=== PATIENT | female | born 1985 | race Caucasian/White ===

== ENCOUNTER 2018-01-11 10:55 | Emergency (ER) | payer OTHER ==
--- NOTE | 2018-01-11 13:00 | XRAY Report ---
EXAM: RIGHT WRIST RADIOGRAPHY EXAM DATE: 01/11/2018 12:29 PM. CLINICAL HISTORY: Wrist injury. Redness. Swelling and pain. COMPARISON: None. TECHNIQUE: 4 views. FINDINGS: Bones: Normal. No fractures or bone lesions. Joints: Normal. No subluxations. Soft Tissues: Soft tissue edema. No radiopaque foreign bodies. IMPRESSION: 1. No acute osseous abnormalities. [facility] Referring Provider Line: [phone] SITE ID: [id number]
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
[2018-01-11] MEDS ORDERED: HYDROcod/ACETAM 5/325 MG TABLET PO STA (13:53)
--- NOTE | 2018-01-11 13:55 | XRAY Report ---
EXAM: RIGHT FOREARM RADIOGRAPHY EXAM DATE: 01/11/2018 01:29 PM. CLINICAL HISTORY: Arm twisted elbow wrist and forearm pain. COMPARISON: None. TECHNIQUE: 2 views. FINDINGS: Bones: Normal. No fractures or bone lesions. Joints: Normal. No effusions or subluxations in the visualized wrist or elbow joints. Soft Tissues: Mild dorsal soft tissue swelling. IMPRESSION: Mild dorsal soft tissue swelling without evidence of fracture. [facility] Referring Provider Line: [phone] SITE ID: [id number]
[2018-01-11 14:34] VITALS: BP 134/77
== END 2018-01-11 14:36 | disposition home or self-care (01) ==
LOC: ED 10:55
DX: S63.501A Unspecified sprain of right wrist, initial encounter (principal); S53.401A Unspecified sprain of right elbow, initial encounter; W18.30XA Fall on same level, unspecified, initial encounter; X50.9XXA Other and unspecified overexertion or strenuous movements or postures, initial encounter; Y93.K1 Activity, walking an animal; Y92.410 Unspecified street and highway as the place of occurrence of the external cause; F17.200 Nicotine dependence, unspecified, uncomplicated
CPT/HCPCS: 1040M; 29125; 73090; 73110; 99283; A9270

== ENCOUNTER 2018-11-25 11:59 | Outpatient (CLI) | payer OTHER ==
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
== END 2018-11-25 12:00 | disposition home or self-care (01) ==
LOC: DI 11:59
PROVIDERS: ATTEND Internal Medicine
DX: R07.82 Intercostal pain (principal); M54.2 Cervicalgia; S13.4XXA Sprain of ligaments of cervical spine, initial encounter; M25.78 Osteophyte, vertebrae
CPT/HCPCS: 72125

== ENCOUNTER 2021-06-25 07:45 | Outpatient (CLI) | payer OTHER | END 2021-06-25 23:59 | LOC: LAB.N 07:45 | PROVIDERS: ATTEND Physician Assistant Medical | DX: R05.9 Cough, unspecified (principal); Z20.822 Contact with and (suspected) exposure to COVID-19 ==

== ENCOUNTER 2022-01-10 08:00 | Outpatient (CLI) | payer OTHER ==
[2022-01-10 18:07] LABS: BILIRUBIN,URINE NEGATIVE (NEGATIVE); GLUCOSE, URINE (UA) NEGATIVE (NEGATIVE); KETONES,URINE (UA) NEGATIVE (NEGATIVE); LEUKOCYTE ESTERASE, URINE MODERATE (NEGATIVE); NITRITE,URINE NEGATIVE (NEGATIVE); OCCULT BLOOD,URINE TRACE-INTA (NEGATIVE); PH,URINE 7.5 PH (5.0-7.5); PROTEIN,URINE NEGATIVE (NEGATIVE); UROBILINOGEN,URINE 0.2 (NORMAL) E.U./dL (NORMAL)
[2022-01-10 18:28] LABS: CLARITY,URINE HAZY (CLEAR)
[2022-01-10 18:59] LABS: AMORPHOUS SEDIMENT,UR Rare /LPF; BACTERIA,URINE Many /HPF (None Seen); RBC,URINE 0-5 /HPF (0-5); SQUAMOUS EPITHELIAL CELL,UR MANY Squamous (<= Few)
== END 2022-01-10 23:59 | disposition home or self-care (01) ==
LOC: LAB.R 08:00
PROVIDERS: ATTEND Internal Medicine
DX: R39.9 Unspecified symptoms and signs involving the genitourinary system (principal)
CPT/HCPCS: 81001; 81003; 87086

== ENCOUNTER 2022-07-25 08:00 | Outpatient (CLI) | payer OTHER ==
[2022-07-25 16:09] LABS: BILIRUBIN,URINE NEGATIVE (NEGATIVE); GLUCOSE, URINE (UA) NEGATIVE (NEGATIVE); KETONES,URINE (UA) NEGATIVE (NEGATIVE); LEUKOCYTE ESTERASE, URINE NEGATIVE (NEGATIVE); NITRITE,URINE NEGATIVE (NEGATIVE); OCCULT BLOOD,URINE SMALL (NEGATIVE); PH,URINE 6.5 PH (5.0-7.5); PROTEIN,URINE NEGATIVE (NEGATIVE); UROBILINOGEN,URINE 0.2 (NORMAL) E.U./dL (NORMAL)
[2022-07-25 16:19] LABS: CLARITY,URINE CLEAR (CLEAR); RBC,URINE 0-5 /HPF (0-5); SQUAMOUS EPITHELIAL CELL,UR MANY Squamous (<= Few); WBC,URINE 0-3 /HPF (0-5)
[2022-07-25 16:20] LABS: BACTERIA,URINE Few /HPF (None Seen)
== END 2022-07-25 23:59 | disposition home or self-care (01) ==
LOC: LAB.R 08:00
PROVIDERS: ATTEND Internal Medicine
DX: R10.31 Right lower quadrant pain (principal); R10.33 Periumbilical pain
CPT/HCPCS: 81001; 87086

== ENCOUNTER 2022-07-25 12:10 | Outpatient (CLI) | payer OTHER ==
[2022-07-25 12:39] LABS: CREATININE 0.6 mg/dL (0.4-1.0)
== END 2022-07-25 12:11 | disposition home or self-care (01) ==
LOC: LAB 12:10
PROVIDERS: ATTEND Nurse Practitioner Family
DX: Z79.899 Other long term (current) drug therapy (principal)
CPT/HCPCS: 36415; 82565

== ENCOUNTER 2022-07-25 12:20 | Outpatient (CLI) | payer OTHER ==
--- NOTE | 2022-07-25 13:24 | CT Report ---
PROCEDURE: ABDOMEN/PELVIS WO INDICATIONS: RLQ PAIN TECHNIQUE: Noncontrast 5 mm thick sections acquired from the diaphragms to the symphysis. 5 mm coronal and sagi ttal reformats were then performed. For radiation dose reduction, the following was used: automated exposure control, adjustment of mA and/or kV according to patient size. COMPARISON: None. FINDINGS: Image quality: Excellent. ABDOMEN: Lung bases: Lung bases are clear. Heart size is normal. Solid organs: Liver and spleen are normal in size. Gallbladder is unremarkable Pancreas is normal in contours. No adrenal nodules. Kidneys are normal in size, without hydronephrosis or nephrolithia sis. Peritoneum and bowel: Unenhanced bowel loops demonstrate normal wall thickness and caliber. No free fluid or air. Nodes and vessels: No retroperitoneal or mesenteric adenopathy by size criteria. Aorta and inferior vena cava are normal in caliber. Miscellaneous: No ventral hernias. PELVIS: Genitourinary: Bladder wall thickness is normal. There is a complex mass appearing to arise from th e right adnexa measuring 15.8 x 12.1 x 15.6 cm. There are portions along the superior aspect best see n on series 6 image 23 that appear to have a more solid component measuring approximately 7.3 x 4.0 c m. Miscellaneous: No inguinal hernias or adenopathy. Bones: No suspicious bony lesions. No vertebral body compression fractures. IMPRESSION: Large pelvic mass appearing complex arising from the right adnexa. Finding is concerning for gynecolo gic malignancy. Further evaluation with PRODUCTION SUPPORT CONSULTANT consult and further imaging such as ultrasound or pelvic MR as indicated. Reviewed by: Apurva Vasquez MD on 07/25/2022 1:23 PM PST Approved by: Apurva Vasquez MD on 07/25/2022 1:23 PM PST Station ID: [id number]
== END 2022-07-25 12:21 | disposition home or self-care (01) ==
LOC: DI 12:20
PROVIDERS: ATTEND Internal Medicine
DX: R19.09 Other intra-abdominal and pelvic swelling, mass and lump (principal); Z79.899 Other long term (current) drug therapy; R10.31 Right lower quadrant pain; R10.33 Periumbilical pain
CPT/HCPCS: 36415; 81001; 82565; 87086

== ENCOUNTER 2022-08-07 20:15 | Outpatient (CLI) | payer OTHER ==
--- NOTE | 2022-08-09 09:25 | Ultrasound Report ---
PROCEDURE: Pelvic Complete INDICATIONS: PELVIC MASS TECHNIQUE: Real-time transabdominal scanning was performed of the pelvic organs, with image documentation. COMPARISON: CT abdomen and pelvis without, 07/25/2022. FINDINGS: Uterus: Uterus is anteverted measuring 9.7 x 4.3 x 5.1 cm. Endometrium measures 9.3 mm in combined thickness. There is an IUD in within the endometrium. Ovaries: Right ovary is not well seen. There is a large complex cystic mass with internal septa in th e right adnexa measuring 14.8 x 12.8 x 15.2 cm. Left ovary is normal measuring 2.2 x 2.1 x 4.1 cm with an estimated volume of 9.84 mL. Other: No free pelvic fluid. IMPRESSION: 1. A large complex cystic mass in the right adnexa measuring 14.8 12.8 x 50.2 cm. Differential diagno ses are benign versus malignant cystic ovarian neoplasm. Recommend gynecological consultation. 2. Normal uterus with an IUD. 3. Normal left ovary. Reviewed by: Kiersten Bull MD on 08/09/2022 9:24 AM PST Approved by: Kiersten Bull MD on 08/09/2022 9:24 AM PST Station ID: [id number]
== END 2022-08-07 20:16 | disposition home or self-care (01) ==
LOC: DI 20:15
PROVIDERS: ATTEND Internal Medicine
DX: R19.00 Intra-abdominal and pelvic swelling, mass and lump, unspecified site (principal); Z97.5 Presence of (intrauterine) contraceptive device

== ENCOUNTER 2022-08-13 08:00 | Outpatient (CLI) | payer OTHER | END 2022-08-13 23:59 | disposition home or self-care (01) | LOC: LAB.R 08:00 | PROVIDERS: ATTEND Internal Medicine | DX: R10.9 Unspecified abdominal pain (principal); N64.4 Mastodynia; J45.901 Unspecified asthma with (acute) exacerbation; R53.83 Other fatigue; M54.2 Cervicalgia; R19.00 Intra-abdominal and pelvic swelling, mass and lump, unspecified site; R21 Rash and other nonspecific skin eruption; J45.909 Unspecified asthma, uncomplicated; K62.5 Hemorrhage of anus and rectum; R07.81 Pleurodynia; R10.31 Right lower quadrant pain; R10.33 Periumbilical pain; M32.9 Systemic lupus erythematosus, unspecified; Z79.899 Other long term (current) drug therapy | CPT/HCPCS: 81599; 82105; 82378; 83520; 83615; 86304; 86336 ==

== ENCOUNTER 2023-09-29 08:00 | Outpatient (CLI) | payer OTHER ==
[2023-09-29 22:38] LABS: BACTERIAL VAGINOSIS DNA NEGATIVE (NEGATIVE); CANDIDA GLABRATA DNA NEGATIVE (NEGATIVE); CANDIDA GROUP DNA POSITIVE (NEGATIVE); CANDIDA KRUSEI DNA NEGATIVE (NEGATIVE); TRICHOMONAS VAGINALIS DNA NEGATIVE (NEGATIVE)
== END 2023-09-29 23:59 | disposition home or self-care (01) ==
LOC: LAB.N 08:00
DX: L29.2 Pruritus vulvae (principal); R30.0 Dysuria
CPT/HCPCS: 81514; 87086

== ENCOUNTER 2023-10-29 08:14 | Outpatient (CLI) | payer OTHER ==
--- NOTE | 2023-10-30 09:41 | Mammography Report ---
BILATERAL DIGITAL DIAGNOSTIC MAMMOGRAM 3D/2D WITH SPOT COMPRESSION: 10/29/2023 CLINICAL: Palpable left breast lump. Baseline exam. No prior exams were available for comparison. Both breasts are heterogeneously dense, which may obscure small masses (category c / 51-75% glandular tissue). There is a 1.6 cm mass in the left breast at 3 o'clock middle depth. This is seen in additional view s and correlates as palpable. There also is a focal asymmetry in the left breast at 11 o'clock posterior depth. This correlates as an incidental finding. Additionally, there is a focal asymmetry in the left breast at 11 o'clock posterior depth. This nydia elates as an incidental finding. No other significant masses, calcifications, or other findings are seen in either breast. IMPRESSION: INCOMPLETE: NEEDS ADDITIONAL IMAGING EVALUATION The 1.6 cm mass in the left breast at 3 o'clock middle depth resembles a cyst or a fibroadenoma and i s indeterminate. The focal asymmetry in the left breast at 11 o'clock posterior depth is indeterminate. The focal asymmetry in the left breast at 11 o'clock posterior depth is indeterminate. A targeted ultrasound of the left breast is recommended and will be performed immediately following t his exam. Based on the Tyrer Cuzick model (a risk assessment model) the patient's lifetime risk is 10.2% and he r 10 year risk is 1.0%. According to the ACR, ACS, and NCCN guidelines, an annual breast MRI exam angelina ng with mammogram is recommended if the patient's lifetime risk is 20% or greater. This exam was interpreted at Station ID: [id number]. NOTE: For mammograms, a report in lay terms will be sent to the patient. Approximately 15% of breast malignancies will not be visualized mammographically. In the management of a palpable breast mass, a negative mammogram must not discourage biopsy of a clinically suspicious lesion. Electronically Signed By: Nessa Wong M.D. lk/:10/29/2023 10:50:24 ACR BI-RADS Category 0: Incomplete 3340F PARENCHYMAL PATTERN: (D) - The breast(s) demonstrate(s) heterogeneously dense fibroglandular parenchy ma. BI-RADS CATEGORY: (0) - 0 RECOMMENDATION: (ADDMAM) - Recommend additional mammographic views. [id number] Immediate follow-up LATERALITY: (B)
--- NOTE | 2023-10-30 09:42 | Ultrasound Report ---
LIMITED ULTRASOUND OF LEFT BREAST: 10/29/2023 Comparison is made to exam dated: 10/29/2023 mammogram - [facility]. Color flow ultrasound of the left breast 3 o'clock and 10-11 o'clock regions was performed on the ar eas of interest. Zheng scale images of the real-time examination were reviewed. There is a 1.3 cm x 1.1 cm x 1.7 cm oval mass in the left breast at 3 o'clock anterior depth. This o magdy mass is hypoechoic with a well-defined boundary, internal echoes, and posterior acoustic enhancem ent. This correlates as palpated and with mammography findings. There also is a 0.9 cm irregular mass in the left breast at 11 o'clock posterior depth. This irregul ar mass is hypoechoic with a well-defined boundary, internal echoes, and posterior acoustic enhanceme nt. This correlates with mammography findings. Additionally, there is a 0.4 cm irregular mass in the left breast at 11 o'clock posterior depth. Thi s irregular mass is hypoechoic with a well-defined boundary, internal echoes, and posterior acoustic enhancement. This correlates with mammography findings. IMPRESSION: SUSPICIOUS OF MALIGNANCY The 1.3 cm x 1.1 cm x 1.7 cm oval mass in the left breast at 3 o'clock anterior depth likely represen ts a fibroadenoma and is at a low suspicion for malignancy. An ultrasound guided biopsy is recommend ed. The 0.9 cm irregular mass in the left breast at 11 o'clock posterior depth likely represents a fibroa denoma and is probably benign. The 0.4 cm irregular mass in the left breast at 11 o'clock posterior depth likely represents a fibroa denoma and is probably benign. This exam was interpreted at Station ID: [id number]. SUMMARY: This was discussed with the patient by the radiologist Dr. Bull at the time of the exam. Electronically Signed By: Nessa serrano/:10/29/2023 11:03:40 Ultrasound BI-RADS: 4a Low suspicion for malignancy BI-RADS CATEGORY: (4a) - Low Susp Biopsy follow-up [id number] Immediate follow-up LATERALITY: (B)
== END 2023-10-29 08:15 | disposition home or self-care (01) ==
LOC: DI 08:14
PROVIDERS: ATTEND Internal Medicine
DX: N63.21 Unspecified lump in the left breast, upper outer quadrant (principal); N63.25 Unspecified lump in the left breast, overlapping quadrants; R92.333 Mammographic heterogeneous density, bilateral breasts

== ENCOUNTER 2023-12-15 07:48 | Day surgery (SDC) | payer OTHER ==
[2023-12-15] MEDS ORDERED: ceFAZolin 2 GM VIAL ONE (07:58)
[2023-12-15] MEDS: ACETAMINOPHEN 500 MG TABLET PO ONE (08:20)
[2023-12-15] MEDS: LACTATED RINGERS 1,000 ML IV ONE (08:41)
[2023-12-15] MEDS ORDERED: MORPHINE 2 MG/ML CARPUJECT IVP PRN (08:48)
[2023-12-15] MEDS ORDERED: METOCLOPRAMIDE 10 MG/2 ML VIAL IVP PRN (08:48)
[2023-12-15] MEDS ORDERED: HYDROmorphone 0.5 MG/0.5 ML SYRINGE IVP PRN ×2 (08:48→10:32)
[2023-12-15] MEDS ORDERED: NALOXONE 0.4 MG/ML VIAL IVP PRN (08:48)
[2023-12-15] MEDS ORDERED: ONDANSETRON 4 MG/2 ML VIAL IVP PRN ×2 (08:48→10:32)
[2023-12-15] MEDS ORDERED: ePHEDrine 50 MG/ML VIAL IVP PRN (08:48)
[2023-12-15] MEDS ORDERED: fentaNYL 100 MCG/2 ML VIAL IVP PRN (08:48)
[2023-12-15] MEDS ORDERED: ATROPINE ABBOJECT 1 MG/10 ML SYRINGE IVP PRN (08:48)
--- NOTE | 2023-12-15 08:48 | ANESTHESIA ---
Pre-Anesthesia VS, & Labs - Diagnosis L breast mass - Procedure L breast excisional biopsy Vital Signs: Temp Pulse Resp BP Pulse Ox O2 Flow Rate 36.0 C L 66 18 144/96 H 97 12/15/23 08:18 12/15/23 08:18 12/15/23 08:18 12/15/23 08:18 12/15/23 08:18 Height: 5 ft Weight (kg): 78.2 kg Body Mass Index: 33.6 BMI Classification: Obese - NPO >8 hours - Is Patient ?: No - Lab Results Lab results reviewed: Yes Home Medications and Allergies Home Medications: Ambulatory Orders No Known Home Medications 11/20/23 No Known Home Medications 11/20/23 Allergies/Adverse Reactions: Allergies Allergy/AdvReac Type Severity Reaction Status Date / Time codeine Allergy Mild Itching Verified 01/11/18 11:22 Penicillins Allergy Mild Rash Verified 01/11/18 11:22 IV contrast Dye AdvReac Severe Anaphylaxis Uncoded 01/11/18 11:23 Anes History & Medical History - Anesthetic History Anesthesia Complications: reports: No previous complications Family history of Anesthesia Complications: Denies Family history of Malignant Hyperthermia: Denies - Medical History Cardiovascular: reports: None Pulmonary: reports: Asthma Gastrointestinal: reports: GERD, Diverticulitis Urinary: reports: None Musculoskeletal: reports: None Endocrine/Autoimmune: reports: Systemic lupus erythematosus Skin: reports: None Smoking Status: Current every day smoker - Surgical History Eyes Ears Nose Throat (EENT): reports: Other Gynecologic: reports: section, Hysterectomy Exam General: Alert, Oriented x3, Cooperative Dental: WNL Mouth Openin Fingerbreadth Neck Mobility: Normal Mallampati classification: II Thyromental Distance: 4-6 cm Respiratory: Lungs clear, Normal breath sounds, No respiratory distress Cardiovascular: Regular rate Neurological: Normal speech Mental/Cognitive Status: Alert/Oriented X3, Normal for patient Cognitive Status: Within normal limits Plan Anesthesia Type: General Consent for Procedure(s) Verified and Reviewed: Yes Code Status: Attempt Resuscitation ASA classification: 2-Mild systemic disease Is this case an emergency?: No
[2023-12-15] MEDS ORDERED: LACTATED RINGERS 1,000 ML IV SCH (09:00)
[2023-12-15] MEDS ORDERED: MIDAZOLAM 2 MG/2 ML VIAL ONE (09:19)
[2023-12-15] MEDS ORDERED: PROPOFOL 200 MG/20 ML VIAL IVP ONE (09:19)
[2023-12-15] MEDS ORDERED: LIDOCAINE-PF 2% 10 ML AMP SUBQ ONE (09:19)
[2023-12-15] MEDS ORDERED: fentaNYL 100 MCG/2 ML VIAL ONE ×2 (09:19→10:23)
[2023-12-15] MEDS ORDERED: LIDOCAINE 1%-EPI 1:100000 20 ML MDV ONE (09:24)
[2023-12-15] MEDS ORDERED: BUPIVACAINE 0.5% PF 10 ML VIAL ONE (09:24)
[2023-12-15] MEDS: LIDOCAINE 1%-EPI 1:100000 20 ML MDV SUBQ ONE ×2 (09:58)
[2023-12-15] MEDS: BUPIVACAINE 0.5% PF 10 ML VIAL SUBQ ONE ×2 (09:58)
[2023-12-15] MEDS ORDERED: ONDANSETRON 4 MG/2 ML VIAL ONE (10:05)
[2023-12-15] MEDS ORDERED: DEXAMETHASONE 4 MG/ML VIAL ONE (10:05)
[2023-12-15] MEDS ORDERED: ACETAMINOPHEN 500 MG TABLET PO PRN (10:32)
[2023-12-15] MEDS: DEXTROSE 5% 1,000 ML IV ONE (10:35)
--- NOTE | 2023-12-15 10:38 | OPERATIVE REPORT ---
Operative Report - General Procedure Date: 12/15/23 Planned Procedure: Excisional biopsy, left breast Pre-Op Diagnosis: left breast mass, suspect fibroadenoma Procedure Performed: Excisional biopsy, left breast Post Op Diagnosis: left breast mass, suspect fibroadenoma - Procedure Note Primary Surgeon: Dr. Ana Paula Rowland Anesthesia Provider: Vargas Mantilla CRNA Anesthesia Technique: General LMA Pathology: Left breast mass sent to pathology oriented short superior, long lateral, double anterior, measuring 3 x 2.5 x 1 cm Estimated Blood Loss (mL): 5 Indications: The patient has a left breast mass which she felt in September of this year. She feels like it has increased slightly in size since that time and causes her significant pain that radiates both to her nipple in her axilla. Imaging indicates a likely fibroadenoma in this location. Because the mass is causing the patient pain I recommended an excisional biopsy over core needle biopsy to provide definitive diagnosis and to treat her symptoms. We discussed the risks, benefits, and alternatives of the procedure including bleeding, infection, damage to surrounding structures, numbness in the area, and upstaging of the mass requiring additional surgery. The patient voiced understanding, her questions were answered, and she wished to proceed. A consent was signed by the patient prior to surgery. Of note, the patient had 2 additional smaller masses, also consistent with fibroadenomas, identified deeper in her breast on imaging, and we elected to follow these with imaging. Findings: 1. Left breast mass measuring 3 x 2.5 x 1 cm oriented short superior, long lateral, double anterior Complications: None - Other Other Information/Narrative: The patient was taken to the operating room and placed in the supine position. Preop antibiotics were given. ERAS medications were given. The patient was prepped and draped in the usual sterile fashion. A preop surgical timeout was performed. Attention was turned to the patient's left breast. An incision was made following the patient's skin folds, at the 3 o'clock position, overlying the mass. Skin flaps were raised superiorly and inferiorly to the incision. The dissection was carried down to the mass using electrocautery. At this point, the mass was grasped and freed from surrounding structures circumferentially. Excellent hemostasis was maintained. The lumpectomy specimen was removed and oriented with suture on the back table. The edges of the lumpectomy cavity were inspected and there were no palpable abnormalities. Hemostasis was confirmed. The lumpectomy cavity was irrigated with warm normal saline. Clips were placed in the superior, inferior, medial, lateral, anterior, and posterior margins of the lumpectomy cavity. The deep dermal tissues were closed with 3-0 Vicryl in an interrupted fashion. The skin was closed with 4-0 Monocryl in a running subcuticular fashion and a sterile dressing of skin glue was placed.. The patient tolerated the procedure well. There were no complications. She was transferred to the recovery room in stable condition.
[2023-12-15] MEDS ORDERED: oxyCODONE 5 MG TABLET ONE (11:14)
[2023-12-15] MEDS: oxyCODONE 5 MG TABLET PO PRN (11:15)
[2023-12-15 11:42] VITALS: BP 132/70; O2SAT 97
--- NOTE | 2023-12-15 12:28 | ANESTHESIA POST OP EVALUATION ---
Anesthesia Post Eval - Post Anesthesia Eval Vitals: Last Vital Signs Temp 36.2 C L 12/15/23 11:33 Pulse 70 12/15/23 11:33 Resp 68 H 12/15/23 11:33 BP 132/70 H 12/15/23 11:33 Pulse Ox 97 12/15/23 11:33 O2 Flow Rate CV Function Including HR & BP: Stable Pain Control: Satisfactory Nausea & Vomiting: Negative Mental Status: Baseline Respiratory Status: Airway Patent Hydration Status: Satisfactory Anesthesia Complications: None
== END 2023-12-15 07:49 | disposition home or self-care (01) ==
LOC: SDS 07:48
PROVIDERS: ATTEND Surgery
PROC: 0HBU0ZZ Excision of Left Breast, Open Approach (ICD-10-PCS; principal; 2023-12-15 09:15)
DX: D24.2 Benign neoplasm of left breast (principal); E66.9 Obesity, unspecified; J45.909 Unspecified asthma, uncomplicated; F17.200 Nicotine dependence, unspecified, uncomplicated; Z68.33 Body mass index [BMI] 33.0-33.9, adult
CPT/HCPCS: 19120; A9270; J7120

== ENCOUNTER 2024-02-12 08:10 | Emergency (ER) | payer OTHER ==
--- NOTE | 2024-02-12 10:09 | ED Physician Documentation ---
History of Present Illness - Stated complaint Stated Complaint: MARTINEZ,PRESSURE - Chief complaint Chief Complaint: Trauma Hd/Nk - History obtained from History obtained from: Patient - Additonal information Additional information: The patient comes to the emergency department chief complaint of bad pain in her occiput wrapping around to her temples and both sides of her face after hitting her head a couple of days ago. She states that she hit the occipital area and that initially, she felt okay but then the pain began to develop. She had also had cold-like symptoms for couple of days before that and states that the congestion feels worse also. She has some clear drainage out of both ears after hitting her head. She denies fevers or chills. She states she began to get nauseated this morning and began vomiting. She has a history of migraines but states this feels completely different. No neck pain. She states that she was not injured in any other way. The patient has had a hysterectomy and states she cannot be . 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 HEENT: Other - Present Medications Home Medications: Ambulatory Orders Medication Instructions Recorded Confirmed Albuterol Sulf [Ventolin Hfa 1 - 2 puffs INH Q4HR PRN 02/12/24 02/12/24 Inhaler] Doxycycline [Vibramycin] 100 mg PO BID #14 tablet 02/12/24 Fluticasone [Flonase] 1 sprays DOMINICK BID PRN #16 gm 02/12/24 HYDROcod/ACETAM 5/325 [Retsof 5/325] 1 - 2 tablet PO Q6H PRN #14 tablet 02/12/24 Ondansetron Odt [Zofran] 4 mg TL Q6H PRN #10 tablet 02/12/24 - Allergies Allergies/Adverse Reactions: Allergies Allergy/AdvReac Type Severity Reaction Status Date / Time codeine Allergy Mild Itching Verified 02/12/24 08:19 Penicillins Allergy Mild Rash Verified 02/12/24 08:19 IV contrast Dye AdvReac Severe Anaphylaxis Uncoded 02/12/24 08:19 - Social History Does the pt smoke?: Yes Smoking Status: Current every day smoker Does the pt drink ETOH?: No Does the pt have substance abuse?: Yes - Immunizations Immunizations are current?: Yes PD ED PE NORMAL - Vitals Vital signs reviewed: Yes - General General: Alert and oriented X 3, Well developed/nourished, Other (The patient is tearful and looks uncomfortable, but otherwise no apparent distress.) - HEENT HEENT: Atraumatic, EOMI, Moist mucous membranes - Neck Neck: Supple, no meningeal sign, No bony TTP, Other (Full range of motion neck spontaneously during conversation. 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, Other (Grossly intact) - Psych Psych: Normal mood, Normal affect Results - Vitals Vitals: Vital Signs - 24 hr 02/12/24 02/12/24 02/12/24 08:14 10:19 11:23 Temperature 36.2 C L 36.1 C L Heart Rate 100 81 92 Respiratory 15 16 17 Rate Blood Pressure 151/106 H 156/96 H 155/94 H O2 Saturation 99 97 98 Oxygen O2 Source Room air - Rads (name of study) CT head Relevant Findings:: Final report received, See rad report (Extensive acute on chronic sinusitis, otherwise negative) CT face Relevant Findings:: Final report received, See rad report (Extensive acute on chronic sinusitis, otherwise negative) PD Medical Decision Making - ED course Complexity details: reviewed results, re-evaluated patient, considered differential, d/w patient ED course: The patient was treated symptomatically with IM Dilaudid, Toradol, and Decadron, and was worked up with CTs of head and face. Patient CT scans showed extensive acute on chronic sinusitis but otherwise negative. We discussed the findings and the plan for treatment at home. The patient was feeling better after the medication we gave her in the emergency department. We have discussed the need for follow-up and the usual indications for return. Departure - Departure Disposition: 01 Home, Self Care Clinical Impression: Closed head injury Qualifiers: Encounter type: initial encounter Qualified Code(s): S09.90XA - Unspecified injury of head, initial encounter Sinusitis Qualifiers: Sinusitis location: unspecified location Chronicity: acute Recurrence: not specified as recurrent Qualified Code(s): J01.90 - Acute sinusitis, unspecified Condition: Stable Instructions: ED Head Injury Closed, ED Sinusitis Abx Tx Prescriptions: Fluticasone [Flonase] 1 sprays DOMINICK BID PRN #16 gm PRN Reason: Nasal Congestion HYDROcod/ACETAM 5/325 [Retsof 5/325] 1 - 2 tablet PO Q6H PRN #14 tablet PRN Reason: Pain Doxycycline [Vibramycin] 100 mg PO BID #14 tablet Ondansetron Odt [Zofran] 4 mg TL Q6H PRN #10 tablet PRN Reason: Nausea / Vomiting Comments: Your CT scans show no injury to your brain in terms of bleeding, but you do have quite a bit of sinus inflammation and clogging. Some of this appears to be chronic but there does appear to be a acute component on top of this. This very well may be viral, and it is probably the cause of your headache and feeling of pressure and congestion. However, since you are so symptomatic, we will go ahead and prescribe an antibiotic as well as the usual steroid spray. A prescription for this, as well as some pain and nausea medicine, has been electronically transmitted to the [facility] in [place], your pharmacy of choice on record. Please follow-up with your primary doctor for further concerns. Forms: PCP List Discharge Date/Time: 02/12/24 11:24
[2024-02-12] MEDS: DEXAMETHASONE 10 MG/ML VIAL IM STA (10:14)
[2024-02-12] MEDS: KETOROLAC 60 MG/2 ML VIAL IM STA (10:14)
[2024-02-12] MEDS: HYDROmorphone 1 MG/ML CARPUJECT IM STA (10:15)
--- NOTE | 2024-02-12 10:45 | CT Report ---
PROCEDURE: Head WO INDICATIONS: pain after hitting occiput 2 d/a, pressure TECHNIQUE: Noncontrast 4.5 mm thick angled axial sections acquired from the foramen magnum to the vertex. For r adiation dose reduction, the following was used: automated exposure control, adjustment of mA and/or kV according to patient size. COMPARISON: Maxillofacial CT from the same date. FINDINGS: Image quality: Excellent. CSF spaces: Basal cisterns are patent. No extra-axial fluid collections. Ventricles are normal in size and shape. Brain: No midline shift. No intracranial masses or hemorrhage. Zheng-white matter interface is norm al. Skull and face: Calvarium and visualized facial bones are intact, without suspicious lesions. No bas ilar skull fracture identified. Sinuses: Extensive sinus disease. Near-total opacification of the left x-ray sinus. Right maxillary s inus air-fluid level. Chronic subtotal opacification of the ethmoids. Sphenoid sinus air-fluid level. Mastoids are clear. IMPRESSION: 1. No acute intracranial pathology. 2. Extensive sinusitis, acute on chronic 3. No basilar skull fracture identified. Reviewed by: Philip Pinto MD on 02/12/2024 10:44 AM PDT Approved by: Philip Pinto MD on 02/12/2024 10:44 AM PDT Station ID: [id number]
--- NOTE | 2024-02-12 10:47 | CT Report ---
PROCEDURE: Maxillofacial WO INDICATIONS: pain s/p head inj, clear drainage from nose/ears TECHNIQUE: Noncontrast 1.5 mm thick axial images acquired from the mandible through the frontal sinuses, with co alan and sagittal reformatting. For radiation dose reduction, the following was used: automated ex posure control, adjustment of mA and/or kV according to patient size. COMPARISON: CT head from the same day. FINDINGS: Image quality: Excellent. Bones and teeth: Orbital doan are intact. Sinus doan show no fracture or deformity. Nasal bones and septum are intact. Visualized portions of the mandible demonstrate no fractures or subluxation. Zygomatic arches are intact. Pterygoid plates are intact. Visualized portions of the skull base an d auditory canals are intact. Sinuses: Extensive sinus disease. Subtotal opacification of the left maxillary sinus. Diffuse mucosal thickening of the right maxillary sinus with small air-fluid level. Subtotal chronic opacification o f the ethmoids with bony remodeling. Sphenoid sinus air-fluid level. Mastoid air cells are aerated. Soft tissues: No edema, masses, or fluid collections. No enlarged lymph nodes. No soft tissue lace rations or debris. Vascular: Visualized vascular structures appear normal in the absence of contrast. Bony vascular fo ramina and canals are intact. IMPRESSION: 1. Extensive sinusitis, acute on chronic. 2. No displaced facial bone fracture or mandibular fracture noted. Reviewed by: Philip Pinto MD on 02/12/2024 10:46 AM PDT Approved by: Philip Pinto MD on 02/12/2024 10:46 AM PDT Station ID: [id number]
[2024-02-12 11:28] VITALS: BP 155/94; O2SAT 98
== END 2024-02-12 11:24 | disposition home or self-care (01) ==
LOC: ED 08:10
DX: S09.90XA Unspecified injury of head, initial encounter (principal); X58.XXXA Exposure to other specified factors, initial encounter; J01.90 Acute sinusitis, unspecified; M32.9 Systemic lupus erythematosus, unspecified; F17.200 Nicotine dependence, unspecified, uncomplicated; Z79.899 Other long term (current) drug therapy
CPT/HCPCS: 96372; 99284